=== PATIENT | female | born 1985 | race Hispanic/Latino ===

== ENCOUNTER 2018-11-18 12:23 | Emergency (ER) | payer SELFPAY ==
[2018-11-18 13:01] LABS: Bilirubin Negative (Negative); Blood, Urine Large (Negative); Glucose, Urine (Dipstick) Negative (Negative); Leukocyte Trace (Negative); Nitrite Negative (Negative); Protein, Urine (Dipstick) Negative (Neg-Trace); Urobilinogen 0.2 mg/dL (Less than 2)
[2018-11-18 13:02] LABS: Clarity Hazy (Clear); Pregnancy Test - Urine (BHCG) Negative (Negative); Pregu Control Background? CLEAR/WHITE (CLR/WHITE); Pregu Control Bar Appear? YES (CONTROL BAR); Specific Gravity 1.015 (1.002-1.036)
[2018-11-18 13:05] LABS: #Basophils 0.1 thou/uL (0.0-0.2); #Eosinphils 0.1 thou/uL (0.0-0.7); #Lymphocytes 2.3 thou/uL (1.20-3.40); #Monocytes 0.5 thou/uL (0.11-0.59); #Neutrophils 5.4 thou/uL (1.40-6.50); %Basophils 0.8 % (0.0-1.0); %Eosinophils 1.4 % (0.0-10.0); %Lymphocytes 27.4 % (21.0-51.0); %Monocytes 6.2 % (0.0-10.0); %Neutrophils 64.3 % (42.0-75.0); Hemoglobin 12.7 g/dL (12.0-16.0); Mean Corpuscular HGB CONC 33.5 g/dL (32.0-36.0); Mean Corpuscular Hemoglobin 29.9 pg (27.0-31.0); Mean Corpuscular Volume 89.1 fL (78.0-98.0); Mean Platelet Volume 5.6 fL (7.4-10.4); Platelet Count 239 thou/uL (130-400); RBC Distribution Width 11.5 % (11.5-14.5); Red Blood Cell (RBC) Count 4.24 mill/uL (4.20-5.40); White Blood Cell (WBC) Count 8.4 thou/uL (4.8-10.8)
[2018-11-18 13:11] LABS: Bacteria/HPF Rare-Few HPF (None Seen); RBC/HPF 0-3 HPF (0-3)
[2018-11-18 13:19] LABS: ALT (SGPT) 18 U/L (8-55); AST (SGOT) 11 U/L (5-34); Alkaline Phosphatase 45 U/L (40-110); Anion Gap 12 mmol/L (10-20); BUN (Urea Nitrogen) 12 mg/dL (7.0-18.7); Bilirubin, Total 0.3 mg/dL (0.2-1.2); Calc. Creatinine Clearance 0 mL/min (70-130); Calcium 8.9 mg/dL (7.8-10.44); Carbon Dioxide 24 mmol/L (22-29); Chloride 108 mmol/L (98-107); Estimated GFR-MDRD Greater than 90; Globulin 3.2 g/dL (2.4-3.5); Glucose 86 mg/dL (70-105); Protein, Total 7.2 g/dL (6.0-8.3); Sodium 140 mmol/L (136-145)
== END 2018-11-18 13:56 | disposition home or self-care (01) ==
LOC: MADERS 12:23
DX: N30.90 Cystitis, unspecified without hematuria (principal); I10 Essential (primary) hypertension; F41.9 Anxiety disorder, unspecified
CPT/HCPCS: 36415; 80053; 81003; 81015; 81025; 85025; 99284

== ENCOUNTER 2019-12-18 20:23 | Emergency (ER) | payer SELFPAY ==
[2019-12-18] MEDS ORDERED: NEOMYCIN-POLYMYXIN-HC EAR SUSP 200 DROP/10 ML BOT ONE (21:04)
== END 2019-12-18 21:28 | disposition home or self-care (01) ==
LOC: MADERS 20:23
DX: H60.91 Unspecified otitis externa, right ear (principal); I10 Essential (primary) hypertension; F41.9 Anxiety disorder, unspecified
CPT/HCPCS: 99282

== ENCOUNTER 2019-12-21 10:23 | Emergency (ER) | payer SELFPAY ==
[2019-12-21] MEDS ORDERED: Amoxicillin/Potassium Clav 875 MG TAB ONE (10:53)
== END 2019-12-21 11:15 | disposition home or self-care (01) ==
LOC: MADERS 10:23
DX: H66.91 Otitis media, unspecified, right ear (principal); F41.9 Anxiety disorder, unspecified; I10 Essential (primary) hypertension
CPT/HCPCS: 99282

== ENCOUNTER 2021-02-03 19:13 | Emergency (ER) | payer SELFPAY ==
[2021-02-03] MEDS ORDERED: Metoclopramide HCl 10 MG/2 ML VIAL ONE (19:50)
[2021-02-03] MEDS ORDERED: diphenhydrAMINE 50 MG/ML VIAL ONE (19:50)
[2021-02-03] MEDS ORDERED: Sodium Chloride 0.9% 1,000 ML ONE (19:50)
[2021-02-03] MEDS ORDERED: Ketorolac Tromethamine 30 MG/ML VIAL ONE (20:32)
[2021-02-04 16:56] LABS: SARS-CoV-2 PCR by NAA DETECTED (NotDetected)
== END 2021-02-03 21:21 | disposition home or self-care (01) ==
LOC: MADERS 19:13
DX: U07.1 COVID-19 (principal); I10 Essential (primary) hypertension; Z79.899 Other long term (current) drug therapy
CPT/HCPCS: 70450; 87804; 96374; 96375; J1200; J1885; J2765; J7050; U0003; U0005

== ENCOUNTER 2021-04-05 20:23 | Emergency (ER) | payer SELFPAY, OTHER ==
[2021-04-05] MEDS ORDERED: Ondansetron ODT 4 MG TAB ONE (21:36)
[2021-04-05] MEDS ORDERED: Metoclopramide HCl 10 MG TAB ONE (22:17)
== END 2021-04-05 22:24 | disposition home or self-care (01) ==
LOC: MADERS 20:23
DX: A08.4 Viral intestinal infection, unspecified (principal)
CPT/HCPCS: 99283; Q0162

== ENCOUNTER 2021-09-03 10:40 | Emergency (ER) | payer OTHER, SELFPAY | END 2021-09-03 12:20 | disposition home or self-care (01) | LOC: MADERS 10:40 | DX: R42 Dizziness and giddiness (principal); R51.9 Headache, unspecified; R53.83 Other fatigue; M79.672 Pain in left foot; M79.671 Pain in right foot; R29.700 NIHSS score 0; I10 Essential (primary) hypertension | CPT/HCPCS: 93005 ==

== ENCOUNTER 2023-08-03 22:25 | Emergency (ER) | payer SELFPAY ==
[2023-08-03] MEDS ORDERED: Acetaminophen 500 MG TAB ONE (23:00)
[2023-08-03 23:03] LABS: Bilirubin Negative (Negative); Blood, Urine Negative (Negative); Clarity Clear (Clear); Glucose, Urine (Dipstick) Negative (Negative); Ketone, Urine Trace mg/dL (Negative); Leukocyte Negative (Negative); Nitrite Negative (Negative); Protein, Urine (Dipstick) Negative (Neg-Trace); Urobilinogen 0.2 mg/dL (Less than 2)
[2023-08-03 23:05] LABS: Specific Gravity, Urine 1.025 (1.002-1.036)
[2023-08-03 23:06] LABS: CAUTI Indications for Culture Dysuria,urgency,freq; RBC/HPF None Seen HPF (0-3); Squamous Epithelial 0-3 HPF (0-3); WBC/HPF 0-3 HPF (0-3)
[2023-08-03 23:07] LABS: Urine Culture Reflex No No
== END 2023-08-04 00:45 | disposition short-term general hospital (02) ==
LOC: MADERS 22:25
DX: O26.891 Other specified pregnancy related conditions, first trimester (principal); Z3A.01 Less than 8 weeks gestation of pregnancy
CPT/HCPCS: 36415; 81001; 84702; 86900; 86901; 99284

== ENCOUNTER 2023-08-20 21:36 | Emergency (ER) | payer MEDICAID, SELFPAY | END 2023-08-20 22:45 | disposition home or self-care (01) | LOC: MADERS 21:36 | DX: O99.891 Other specified diseases and conditions complicating pregnancy (principal); O99.611 Diseases of the digestive system complicating pregnancy, first trimester; K21.9 Gastro-esophageal reflux disease without esophagitis; Z3A.00 Weeks of gestation of pregnancy not specified | CPT/HCPCS: 99283 ==

== ENCOUNTER 2023-12-04 14:50 | Emergency (ER) | payer MEDICAID ==
[2023-12-04 15:55] LABS: Bilirubin Negative (Negative); Blood, Urine Negative (Negative); Glucose, Urine (Dipstick) Negative (Negative); Ketone, Urine Negative (Negative); Leukocyte Trace (Negative); Nitrite Negative (Negative); Protein, Urine (Dipstick) Negative (Neg-Trace); Specific Gravity, Urine 1.025 (1.005-1.030); Urobilinogen 0.2 mg/dL (Less than 2)
[2023-12-04 15:57] LABS: Bacteria/HPF 2+ HPF (None Seen); CAUTI Indications for Culture Dysuria,urgency,freq; Clarity Hazy (Clear); RBC/HPF 0-3 HPF (0-3); WBC/HPF 0-3 HPF (0-3)
[2023-12-04 15:58] LABS: Urine Culture Reflex No No
[2023-12-04] MEDS ORDERED: Acetaminophen 500 MG TAB ONE (16:04)
[2023-12-04] MEDS ORDERED: diphenhydrAMINE 25 MG CAP ONE (16:04)
[2023-12-04] MEDS ORDERED: Nitrofurantoin Monohyd/M-Cryst 100 MG CAP ONE (16:56)
== END 2023-12-04 17:00 | disposition home or self-care (01) ==
LOC: MADERS 14:50
DX: N39.0 Urinary tract infection, site not specified (principal); I10 Essential (primary) hypertension
CPT/HCPCS: 81001; 99283

== ENCOUNTER 2024-03-14 16:42 | Emergency (ER) | payer MEDICAID ==
[2024-03-14] MEDS ORDERED: Sodium Chloride 0.9% 1,000 ML ONE (17:45)
[2024-03-14] MEDS ORDERED: Vancomycin 1 GM VIAL ONE (17:45)
[2024-03-14] MEDS ORDERED: Sodium Chloride 0.9% 250 ML 250 ML ONE (17:45)
[2024-03-14 17:47] LABS: #Eosinophils 0.1 thou/uL (0.0-0.7); #Lymphocytes 1.3 thou/uL (1.20-3.40); #Monocytes 0.3 thou/uL (0.11-0.59); #Neutrophils 3.8 thou/uL (1.40-6.50); %Basophils 0.9 % (0.0-1.0); %Eosinophils 1.3 % (0.0-10.0); %Lymphocytes 23.2 % (21.0-51.0); %Neutrophils 69.6 % (42.0-75.0); Hematocrit 31.9 % (36.0-47.0); Hemoglobin 10.6 g/dL (12.0-16.0); Mean Corpuscular HGB CONC 33.3 g/dL (32.0-36.0); Mean Corpuscular Hemoglobin 32.1 pg (27.0-31.0); Mean Corpuscular Volume 96.7 fl (78.0-98.0); Mean Platelet Volume 5.1 fL (7.4-10.4); Platelet Count 364 10x3/uL (130-400); White Blood Cell (WBC) Count 5.5 10x3/uL (4.8-10.8)
[2024-03-14 17:51] LABS: Prothrombin Time 12.8 sec (12.0-14.7)
[2024-03-14 17:52] LABS: PTT 28.5 sec (22.9-36.1)
[2024-03-14 18:01] LABS: ALT (SGPT) 13 U/L (Less than 34); AST (SGOT) 20 U/L (11-34); Albumin 3.1 g/dL (3.1-4.5); Alkaline Phosphatase 109 U/L (40-110); Anion Gap 14 mmol/L (10-20); BUN (Urea Nitrogen) 17 mg/dL (7.0-18.7); Bilirubin, Total 0.2 mg/dL (0.3-1.2); Calc. Creatinine Clearance 0 mL/min (70-130); Calcium 8.9 mg/dL (7.8-10.44); Carbon Dioxide 21 mmol/L (22-29); Chloride 110 mmol/L (98-107); Estimated GFR 107; Globulin 3.9 g/dL (2.4-3.5); Glucose 79 mg/dL (70-105); Potassium 4.3 mmol/L (3.5-5.1); Sodium 141 mmol/L (136-145)
[2024-03-14 19:26] LABS: Bilirubin Negative (Negative); Blood, Urine Small (Negative); Clarity Clear (Clear); Glucose, Urine (Dipstick) Negative (Negative); Ketone, Urine Negative (Negative); Leukocyte Negative (Negative); Nitrite Negative (Negative); Protein, Urine (Dipstick) Negative (Neg-Trace); Urobilinogen 0.2 mg/dL (Less than 2); pH, Urine 6.5 (5.0-9.0)
[2024-03-14 19:30] LABS: CAUTI Indications for Culture Acute Hematuria; RBC/HPF None Seen HPF (0-3); Squamous Epithelial 0-3 HPF (0-3); WBC/HPF None Seen HPF (0-3)
[2024-03-14 19:31] LABS: Urine Culture Reflex No No
== END 2024-03-14 20:07 | disposition home or self-care (01) ==
LOC: MADERS 16:42
DX: O86.00 Infection of obstetric surgical wound, unspecified (principal)
CPT/HCPCS: 36415; 74177; 80053; 81001; 83605; 85025; 85610; 85730; 87040; 96365; J3370; J7030; J7050